=== PATIENT | female | born 1995 | race Caucasian/White ===

== ENCOUNTER 2020-05-06 15:35 | Outpatient (REF) | payer MEDICAID, SELFPAY ==
--- NOTE | 2020-05-06 13:20 | PAPFT_PTH ---
PATIENT: Zulema Lorenzo LOC: [facility] U#:[id number] AGE/SX: 24/F ROOM: RE05/06/[address]: Jannet Garcia : 1995 BED: DIS: 05/06/2020 SPEC #: [id number] RECD: 05/07/20 12:51 STATUS: DANI REIvette #: [id number] JAYLEEN: 05/06/20 13:[address]: Jannet Feliz DEPT: [facility], LAT[facility] Cytology RECD BY: Eli Smith Tissues: 1 - CX/ENDOCX FOR PAP SMEARS Procedures: PAP THIN PREP/[facility] Screening Comments: [id number] (CHLAMYDIA/GC)
[2020-05-08 11:53] LABS: Chlamydia Result Negative (Negative); GC Result Negative (Negative)
== END 2020-05-06 15:55 ==
LOC: NCHCN 15:35
PROVIDERS: PCP Nurse Practitioner Family; Visit Provider Nurse Practitioner Family
DX: Z12.4 Encounter for screening for malignant neoplasm of cervix (principal); Z11.3 Encounter for screening for infections with a predominantly sexual mode of transmission; Z87.42 Personal history of other diseases of the female genital tract; Z11.51 Encounter for screening for human papillomavirus (HPV)
CPT/HCPCS: 87491; 87591; 88142

== ENCOUNTER 2022-03-26 15:04 | Outpatient (REF) | payer MEDICAID, SELFPAY ==
--- NOTE | 2022-03-26 14:00 | PAPFT_PTH ---
PATIENT: Zulema Lorenzo LOC: [facility]#:[id number] AGE/SX: 26/F ROOM: RE03/26/[address]: Pau Xavier : 1995 BED: DIS: 03/26/2022 SPEC #: [id number] RECD: 03/27/22 12:58 STATUS: DANI REIvette #: [id number] JAYLEEN: 03/26/22 14:[address]: Shawna Baldwin DEPT: REPLACED BY [facility] Cytology RECD BY: Eli Smith ENTERED: 03/27/22 12:58 SP TYPE: PAPFT OTHR DR: Jannet Garcia Tissues: 1 - CX/ENDOCX FOR PAP SMEARS Procedures: PAP THIN PREP/[facility] Screening HPV DNA PROBE Comments: [id number] (CHLAMYDIA/GC)
[2022-03-30 13:33] LABS: Chlamydia Result Negative (Negative); GC Result Negative (Negative)
== END 2022-03-26 15:05 | disposition home or self-care (01) ==
LOC: NCHCN 15:04
PROVIDERS: Nurse Practitioner; PCP Nurse Practitioner Family; Visit Provider Nurse Practitioner Family
DX: Z11.3 Encounter for screening for infections with a predominantly sexual mode of transmission (principal); Z12.4 Encounter for screening for malignant neoplasm of cervix
CPT/HCPCS: 87491; 87591; 88142; 87624